=== PATIENT | female | born 1955 | race Caucasian/White ===

== ENCOUNTER 2016-09-06 07:52 | Day surgery (SDC) | payer BC ==
[~2016-09-06] VITALS: Ht 160 cm; Wt 68.8 kg
[2016-09-06 08:51] VITALS: BP 152/83; PULSE 73; TEMP 98.2
[2016-09-06] MEDS ORDERED: SYNTHROID0.1 MG/TAB PO (08:58)
[2016-09-06] MEDS ORDERED: THEROMEGA1000 MG PO (08:59)
[2016-09-06] MEDS ORDERED: PROBIOTIC FORMU1 CAP PO (09:00)
[2016-09-06 12:05] VITALS: BP 140/71; PULSE 67; TEMP 98
[2016-09-06] MEDS ORDERED: SENOKOT S 50 MG1 TAB PO (12:18)
[2016-09-06] MEDS ORDERED: NORCO 325 MG-51 TAB PO (12:18)
[2016-09-06 12:20] VITALS: BP 151/84; PULSE 70
[2016-09-06] MEDS ORDERED: PYRIDIUM 100MG100 MG PO (12:25)
[2016-09-06 13:12] VITALS: BP 141/79; PULSE 69; TEMP 98.2
== END 2016-09-06 13:00 | disposition home or self-care (01) ==
LOC: SDCO 07:52
DX: N20.1 Calculus of ureter (principal); E03.9 Hypothyroidism, unspecified; Z87.442 Personal history of urinary calculi; Z79.899 Other long term (current) drug therapy
CPT/HCPCS: C1769; C2617; J0690; J1100; J1885; J2405; J2704; J3010; Q9967